=== PATIENT | female | born 1965 | race Caucasian/White ===

== ENCOUNTER 2017-01-15 06:33 | Emergency (ER) | payer OTHER ==
[2017-01-15 06:39] VITALS: BMI 27.8
--- NOTE | 2017-01-15 07:09 | PDOC ---
History of Present Illness - History of Present Illness Initial Comments: 01/15/17 07:46 CHIEF COMPLAINT: Seizure PCP: Dr. Obey Winn HISTORY OF PRESENT ILLNESS: The patient is a 51-year-old female, a resident of [facility], was brought in because she had " Seizure" this morning. A/c to the resident care manager rn Antwan ( at bed side), they were helping her take shower when suddenly she sat down on her butt and started shaking from head to toe, there was no up rolling of eyes or tongue bite, lasted for 4-5 minutes. This is her third episode of seizure. Patient was seen here in Nov, 2015 with first episode of seizure, was given loading dose of Keppra but EEG was normal, hence Keppra was stopped. She came back again after a month, Dr. King was consulted who mentioned she may have been developing early onset Alzheimers and seizure secondary to Downs syndrome. Hence Keppra was restarted. Health Policy Manager mentions that patient has been compliant with the medication and has not noticed any unusual activities in the past week. Last night fireman helper found her in her bed up all night which is usual for her. Has h/o constipation. On diapers, no blood noticed in the diaper. Appetite:Ground diet and thin liquids. Recent Travel: None PAST MEDICAL HISTORY: Down Syndrome, Hypothyroidism, Early onset dementia and Seizure. PAST SURGICAL HISTORY: As mentioned above Social History: Smoking: Denies Alcohol: Denies Drugs: Denies Family History:Unknown Allergies: NKDA 01/15/17 08:34 <Chuyita Paz - Last Filed: 01/15/17 12:34> <Jenniffer Goldman - Last Filed: 01/15/17 12:53> - General Chief Complaint: Seizure Stated Complaint: SEIZURES Time Seen by Provider: 01/15/17 07:09 Past History - Past Medical History Anemia: No Asthma: No Cancer: No Cardiac Disorders: No CVA: No COPD: No CHF: No Dementia: No Diabetes: No GI Disorders: Yes (umbilical hernia) Disorders: No HTN: No Hypercholesterolemia: No Liver Disease: No Seizures: Yes (Generalized non-convulsive epilepsy) Thyroid Disease: Yes - Surgical History Abdominal Surgery: No Appendectomy: No Cardiac Surgery: No Cholecystectomy: No Lung Surgery: No Neurologic Surgery: No Orthopedic Surgery: Yes (Hoyt Rods) - Immunization History Immunization Up to Date: Yes - Psycho/Social/Smoking Cessation Hx Anxiety: No Suicidal Ideation: No Smoking Status: No Smoking History: Never smoked Have you smoked in the past 12 months: No Number of Cigarettes Smoked Daily: 0 Hx Alcohol Use: No Drug/Substance Use Hx: No Substance Use Type: None Hx Substance Use Treatment: No <Chuyita Paz - Last Filed: 01/15/17 12:34> <Jenniffer Goldman - Last Filed: 01/15/17 12:53> - Past Medical History Allergies/Adverse Reactions: Allergies Allergy/AdvReac Type Severity Reaction Status Date / Time No Known Allergies Allergy Verified 01/15/17 06:40 Home Medications: Ambulatory Orders Acetaminophen [Tylenol] 650 mg PO Q4H PRN 01/13/16 Bisacodyl [Dulcolax] 10 mg RC HS PRN 01/13/16 Levothyroxine [Synthroid -] 137 mcg PO DAILY 01/13/16 Multivitamin [Poly-Vitamin] 1 each PO DAILY 01/13/16 Polyethylene Glycol 3350 [Miralax (For Bowel Prep) -] 17 gm PO DAILY 01/13/16 Sennosides [Senna] 2 tab PO HS 01/13/16 Levetiracetam [Keppra] 1,000 mg PO BID #30 tablet 01/15/17 Review of Systems - Review of Systems Able to Perform ROS?: Yes Comments:: 01/15/17 08:12 CONSTITUTIONAL: Absent: fever, chills, diaphoresis, generalized weakness, malaise, loss of appetite HEENT: Absent: rhinorrhea, nasal congestion, throat pain, throat swelling, difficulty swallowing, mouth swelling, ear pain, eye pain, visual Changes CARDIOVASCULAR: Absent: chest pain, syncope, palpitations, irregular heart rate, lightheadedness , peripheral edema RESPIRATORY: Absent: cough, shortness of breath, dyspnea with exertion, orthopnea, wheezing, stridor, hemoptysis GASTROINTESTINAL: Absent: abdominal pain, abdominal distension, nausea, vomiting, diarrhea, constipation, melena, hematochezia GENITOURINARY: Absent: dysuria, frequency, urgency, hesitancy, hematuria, flank pain, genital pain MUSCULOSKELETAL: Absent: myalgia, arthralgia, joint swelling SKIN: Absent: rash, itching, pallor HEMATOLOGIC/IMMUNOLOGIC: Absent: easy bleeding, easy bruising, lymphadenopathy, frequent infections ENDOCRINE: Absent: unexplained weight gain, unexplained weight loss, heat intolerance, cold intolerance NEUROLOGIC: Present: seizure Absent: headache, focal weakness or paresthesias, dizziness, unsteady gait, mental status changes, bladder or bowel incontinence PSYCHIATRIC: Absent: anxiety, depression, suicidal or homicidal ideation, hallucinations. Is the patient limited [place] proficient: No <Chuyita Paz - Last Filed: 01/15/17 12:34> *Physical Exam - Vital Signs Last Vital Signs Temp Pulse Resp BP Pulse Ox 83 18 116/65 98 01/15/17 06:37 01/15/17 06:37 01/15/17 06:37 01/15/17 06:37 - Physical Exam Comments: 01/15/17 08:13 PE: GENERAL: Sleepy but arousable, non verbal at baseline, in no acute distress HEAD: No signs of trauma EYES: PERRLA, EOMI, sclera anicteric, conjunctiva clear ENT: Redness over the auricles of right ear, nares patent, oropharynx clear without exudates. Moist mucosa NECK: Normal ROM, supple, no lymphadenopathy, JVD, or masses LUNGS: Breath sounds equal, clear to auscultation bilaterally. No wheezes, and no crackles.. HEART: Regular rate and rhythm, normal S1 and S2, soft systolic murmur. ABDOMEN: Soft, nontender, normoactive bowel sounds. No guarding, no rebound. No masses EXTREMITIES: Normal range of motion, no edema. No clubbing or cyanosis. No cords, erythema, or tenderness NEUROLOGICAL: Cranial nerves II through XII grossly intact. Non verbal, gait not observed. Back: Surgical scar nicole starting from the neck to the lower back. SKIN: Warm, Dry, normal turgor, no rashes or lesions noted. <Chuyita Paz - Last Filed: 01/15/17 12:34> - Vital Signs Last Vital Signs Temp Pulse Resp BP Pulse Ox 97.6 F 90 17 107/61 100 01/15/17 10:12 01/15/17 12:04 01/15/17 12:04 01/15/17 12:04 01/15/17 12:04 <Jenniffer Goldman - Last Filed: 01/15/17 12:53> ED Treatment Course - LABORATORY CBC & Chemistry Diagram: 01/15/17 07:50 01/15/17 07:50 <Chuyita Paz - Last Filed: 01/15/17 12:34> - LABORATORY CBC & Chemistry Diagram: 01/15/17 07:50 01/15/17 07:50 - ADDITIONAL ORDERS Additional order review: Laboratory Results 01/15/17 01/15/17 01/15/17 11:52 08:50 08:05 Sodium Potassium Chloride Carbon Dioxide Anion Gap BUN Creatinine Creat Clearance w eGFR Random Glucose Lactic Acid 0.881 2.300 H* Calcium Total Bilirubin AST ALT Alkaline Phosphatase Total Protein Albumin Urine Color Yellow Urine Appearance Cloudy Urine pH 7.0 Ur Specific [place] 1.016 Urine Protein Negative Urine Glucose (UA) Negative Urine Ketones Negative Urine Blood Negative Urine Nitrite Negative Urine Bilirubin Negative Urine Urobilinogen Negative Ur Leukocyte Esterase Negative 01/15/17 07:50 Sodium 142 Potassium 4.6 Chloride 104 Carbon Dioxide 32 Anion Gap 6 L BUN 18 D Creatinine 0.9 Creat Clearance w eGFR > 60 Random Glucose 94 Lactic Acid Calcium 8.3 L Total Bilirubin 0.6 AST 31 ALT 41 D Alkaline Phosphatase 115 Total Protein 7.2 Albumin 3.3 L Urine Color Urine Appearance Urine pH Ur Specific [place] Urine Protein Urine Glucose (UA) Urine Ketones Urine Blood Urine Nitrite Urine Bilirubin Urine Urobilinogen Ur Leukocyte Esterase 01/15/17 07:50 Influenza Types A,B Antigen (JACQUI) - Final Nasopharyngeal Swab - Final 01/15/17 07:50 RBC 4.12 MCV 95.2 MCHC 33.4 RDW 15.3 MPV 7.7 Neutrophils % 63.0 D Lymphocytes % 25.7 D Monocytes % 10.5 H D Eosinophils % 0.2 D Basophils % 0.6 - Medications Given in the ED: ED Medications Discontinued Medications Generic Name Dose Route Start Last Admin Trade Name Freq PRN Reason Stop Dose Admin Sodium Chloride 1,000 mls @ 1,000 mls/hr 01/15/17 09:53 01/15/17 10:05 Normal Saline - IV 01/15/17 10:52 1,000 mls/hr ASDIR STA Administration Levetiracetam 1,000 mg 01/15/17 09:12 01/15/17 10:12 Keppra Injection - IVPB 01/15/17 09:13 1,000 mg ONCE ONE Administration <Jenniffer Goldman - Last Filed: 01/15/17 12:53> Medical Decision Making - Medical Decision Making 01/15/17 07:05 Patient seen and examined, resident care manager rn Antwan at bed side. Vitals, temp-96 F, rest unremarkable. At baseline now as per the resident care manager rn. Physical examination: Normal Will order CBC, CMP, UA, CXR, Lactic acid Differential Diagnosis: Non compliance to seizure medication, subtherapeutic keppra levels, metabolic disturbances, infections, sleep deprivation. 01/15/2017 8:00 Patient reassessed. Health Policy Manager says she is at baseline, she is sleeping now but arousable. Labs noted, no leukocytosis, no metabolic disturbance. 01/15/17 9:00 Gentle hydration and IV Keppra 1000mg Stat. Will reassess the patient and place a call to Dr. King for his recommendations. 01/15/17 11:55am Call placed to Dr. King. Dr. King recommends to increase Keppra dose to 1000mg BID and send her home. 01/15/17 12:05 Clinical Impression: Seizure most likely due to inadequate dose of medication Lactic acidosis could be due to seizure-Patient received IV hydration and IV Keppra 1000mg stat Repeat Lactic acid stat and to send the patient home once lactic acid comes back normal. Increased 750mg of Keppra to 1000mg of Keppra BID Patient endorsed to Dr. Goldman @ 12:35pm Illness, Investigation and Plan of care explained to the patients resident care manager rn ( Antwan) and she verbalized understanding. Case seen and discussed with Dr. Goldman. <Chuyita Paz - Last Filed: 01/15/17 12:34> *DC/Admit/Observation/Transfer <Chuyita Paz - Last Filed: 01/15/17 12:34> - Discharge Dispostion Admit: No <Jenniffer Goldman - Last Filed: 01/15/17 12:53> Diagnosis at time of Disposition: Seizure, Seizure disorder - Discharge Dispostion Disposition: [facility] Condition at time of disposition: Stable - Prescriptions Prescriptions: Levetiracetam [Keppra] 1,000 mg PO BID #30 tablet - Patient Instructions Additional Instructions: Increase the Keppra dose to 1000mg twice daily. Follow-up with Neurology. Return to the ED if symptoms persist, worsen or new symtpoms arise.
--- NOTE | 2017-01-15 07:58 | PDOC ---
Attending Attestation - Resident Resident Name: Chuyita Paz - ED Attending Attestation I have performed the following: I have examined & evaluated the patient, The case was reviewed & discussed with the resident, I agree w/resident's findings & plan, Exceptions are as noted - HPI HPI: 01/15/17 09:52 Agree with the resident's HPI as documented in the electronic medical record. - Physicial Exam PE: 01/15/17 09:52 Agree with the resident's physical examination as documented in the electronic medical record. - Medical Decision Making 01/15/17 07:57 51-year-old female with history of Down syndrome, mental retardationthe patient is nonverbal at baseline early dementia, seizure disorder (on Keppra) who presents to the emergency department following a witnessed generalized tonic -clonic seizure; the patient has a temperature of 96F rectally. There appears to be no traumatic injury. Differential diagnosis includes but is not limited to : Subtherapeutic antiepileptic drug levels, infection (urinary tract infection versus pneumonia close rent disease, influenza, electrolyte abnormality, toxic/ metabolic derangement, dehydration. Plan: 1. Labs 2. Urine analysis 3. Chest x-ray 4. Influenza PCR 5. Warm blankets 6. Observe and reevaluate 01/15/17 12:51 Addendum: The labs were reviewed and are noted in the EMR. The lactate was initially 2.3 but is now 0.8. We have spoken to Dr. Christiano perez who is the patient's neurologist who recommended a load with Keppra of 1 g in the emergency department and discharged on 1 g twice a day.
[2017-01-15 08:18] LABS: BASOPHIL 0.6 % (0-2.0); EOSINOPHIL 0.2 % (0-4.5); MCH 31.8 pg (25.7-33.7); MCHC 33.4 g/dl (32.0-36.0); MEAN CELL VOLUME 95.2 fl (80-96); MEAN PLT VOLUME 7.7 fl (7.5-11.1); PLATELET COUNT 239 K/MM3 (134-434); RDW 15.3 % (11.6-15.6); WHITE BLOOD COUNT 4.9 K/mm3 (4.0-10.0)
[2017-01-15 08:51] LABS: ALBUMIN 3.3 g/dl (3.4-5.0); ANION GAP 6 (8-16); BILIRUBIN,TOTAL 0.6 mg/dL (0.2-1.0); CALCIUM 8.3 mg/dL (8.5-10.1); CO2 32 mmol/L (21-32); CREATININE 0.9 mg/dL (0.55-1.02); GLUCOSE,RANDOM 94 mg/dL (74-106); SGOT/AST 31 U/L (15-37); SGPT/ALT 41 U/L (12-78); TOT PROT 7.2 g/dl (6.4-8.2)
[2017-01-15 08:52] LABS: ALK PHOS 115 U/L (45-117)
[2017-01-15 08:54] LABS: URINE APPEARANCE CLOUDY; URINE BILIRUBIN NEGATIVE (NEGATIVE); URINE BLOOD NEGATIVE (NEGATIVE); URINE COLOR YELLOW; URINE GLUCOSE (UA) NEGATIVE (NEGATIVE); URINE KETONE NEGATIVE (NEGATIVE); URINE LEUK ESTERASE NEGATIVE (NEGATIVE); URINE NITRITE NEGATIVE (NEGATIVE); URINE PROTEIN NEGATIVE (NEGATIVE); URINE UROBILINOGEN NEGATIVE E.U./dl (0.2-1.0)
[2017-01-15] MEDS ORDERED: levETIRAcetam 500 MG/5 ML INJECTION VIAL IVPB ONE ×2 (09:12→10:06)
[2017-01-15] MEDS ORDERED: SODIUM CHLORIDE 1,000 ML IV SCH (09:15)
[2017-01-15] MEDS ORDERED: SODIUM CHLORIDE 1,000 ML IV STA (09:53)
[2017-01-15 13:23] VITALS: BP 115/71; PULSE 75; TEMP 97.9
--- NOTE | 2017-01-15 14:34 | EKG ---
Test Reason : Blood Pressure : / mmHG Vent. Rate : 089 BPM Atrial Rate : 089 BPM P-R Int : 160 ms QRS Dur : 070 ms QT Int : 376 ms P-R-T Axes : 074 050 037 degrees QTc Int : 457 ms NORMAL SINUS RHYTHM POSSIBLE LEFT ATRIAL ENLARGEMENT BORDERLINE ECG WHEN COMPARED WITH ECG OF 14-MAR-2012 10:56, NO SIGNIFICANT CHANGE WAS FOUND Confirmed by LUZ CORTES MD ([id number]) on 01/15/2017 2:34:08 PM Referred By: Confirmed By:LUZ CORTES MD
== END 2017-01-15 13:23 ==
LOC: JER 06:33
PROC: 3E0337Z Introduction of Electrolytic and Water Balance Substance into Peripheral Vein, Percutaneous Approach (ICD-10-PCS; principal; 2017-01-15)
PROC: 3E033GC Introduction of Other Therapeutic Substance into Peripheral Vein, Percutaneous Approach (ICD-10-PCS; 2017-01-15)
DX: G40.909 Epilepsy, unspecified, not intractable, without status epilepticus (principal); E03.9 Hypothyroidism, unspecified; F03.90 Unspecified dementia, unspecified severity, without behavioral disturbance, psychotic disturbance, mood disturbance, and anxiety; Q90.9 Down syndrome, unspecified
CPT/HCPCS: 36415; 71010-TC; 80053; 81003; 83605; 85025; 87040; 87086; 87804; 93005; 93010; 96361; 96374; 99285-25

== ENCOUNTER 2018-02-01 19:18 | Emergency (ER) | payer OTHER ==
[2018-02-01 19:47] VITALS: BP 120/53; PULSE 79; TEMP 98; BMI 21.0
--- NOTE | 2018-02-01 20:06 | PDOC ---
History of Present Illness - General Chief Complaint: Nausea/Vomiting Stated Complaint: VOMITING Time Seen by Provider: 02/01/18 20:06 - History of Present Illness Initial Comments: 52 year old female with PMH of down syndrome and hypothyroidism presenting with nausea and vomiting NBNB x6 episodes since this AM. The patient was not complaining of any abdominal pain or other symptoms. She is typically non verbal but occasionally can point towards areas of pain. The environmental conservation professor at bedside states that she has not had fevers, chills, diarrhea, SOB, wheezing, or other symptoms. 02/01/18 23:22 Past History - Past Medical History Allergies/Adverse Reactions: Allergies Allergy/AdvReac Type Severity Reaction Status Date / Time No Known Allergies Allergy Verified 01/15/17 06:40 Home Medications: Ambulatory Orders Acetaminophen [Tylenol] 650 mg PO Q4H PRN 01/13/16 Bisacodyl [Dulcolax] 10 mg RC HS PRN 01/13/16 Levothyroxine [Synthroid -] 137 mcg PO DAILY 01/13/16 Multivitamin [Poly-Vitamin] 1 each PO DAILY 01/13/16 Polyethylene Glycol 3350 [Miralax (For Bowel Prep) -] 17 gm PO DAILY 01/13/16 Sennosides [Senna] 2 tab PO HS 01/13/16 Levetiracetam [Keppra] 1,000 mg PO BID #30 tablet 01/15/17 Anemia: No Asthma: No Cancer: No Cardiac Disorders: No CVA: No COPD: No CHF: No Dementia: No Diabetes: No GI Disorders: Yes (umbilical hernia) Disorders: No HTN: No Hypercholesterolemia: No Liver Disease: No Seizures: Yes (Generalized non-convulsive epilepsy) Thyroid Disease: Yes - Surgical History Abdominal Surgery: No Appendectomy: No Cardiac Surgery: No Cholecystectomy: No Lung Surgery: No Neurologic Surgery: No Orthopedic Surgery: Yes (Hoyt Rods) - Immunization History Immunization Up to Date: Yes - Suicide/Smoking/Psychosocial Hx Smoking Status: No Smoking History: Never smoked Have you smoked in the past 12 months: No Number of Cigarettes Smoked Daily: 0 Hx Alcohol Use: No Drug/Substance Use Hx: No Substance Use Type: None Hx Substance Use Treatment: No Review of Systems - Review of Systems Able to Perform ROS?: No (unable to express herself) *Physical Exam - Vital Signs Last Vital Signs Temp Pulse Resp BP Pulse Ox 98 F 79 18 120/53 100 02/01/18 19:40 02/01/18 19:40 02/01/18 19:40 02/01/18 19:40 02/01/18 19:40 - Physical Exam General Appearance: Yes: Nourished, Appropriately Dressed. No: Apparent Distress HEENT: positive: EOMI, CARINE, Normal ENT Inspection, Other (facial featurs and ear level to epicanthal fold level consistent with trisomy 13) Neck: positive: Trachea midline, Supple. negative: Tender, Rigid Respiratory/Chest: positive: Lungs Clear, Normal Breath Sounds. negative: Chest Tender, Respiratory Distress, Accessory Muscle Use Cardiovascular: positive: Regular Rhythm, Regular Rate Gastrointestinal/Abdominal: positive: Normal Bowel Sounds, Flat, Soft, Hernia ( large ventral hernia, easily reducible. ). negative: Tender, Pulsatile Mass Musculoskeletal: positive: Normal Inspection Extremity: positive: Normal Capillary Refill, Normal Inspection Integumentary: positive: Normal Color, Dry, Warm Neurologic: positive: Alert, Motor Strength 5/5. negative: Normal Response ( continuously trying to ) ED Treatment Course - LABORATORY CBC & Chemistry Diagram: 02/01/18 21:30 02/01/18 21:30 Medical Decision Making - Medical Decision Making Patient did not have any episodes of nausea/ vomiting while in our ED. Her abdominal exam was benign x 3 (no tenderness, guarding, and ventral mass continuously reducible) and she tolerated PO apple sauce and juice without issue. Stable for discharge home as this is likely a short lived viral gastritis. 02/01/18 23:37 *DC/Admit/Observation/Transfer Diagnosis at time of Disposition: Gastritis Qualifiers: Gastritis type: unspecified gastritis Chronicity: acute Gastritis bleeding: without bleeding Qualified Code(s): K29.00 - Acute gastritis without bleeding - Discharge Dispostion Disposition: HOME Condition at time of disposition: Improved Admit: No - Referrals Referrals: Pa Barnhart Jr [Primary Care Provider] - - Patient Instructions Printed Discharge Instructions: DI for Vomiting -- Adult, DI for Abdominal Pain -Adult Additional Instructions: She did not vomit while in our ED. We recommend to continue following her diet instructions. She likely had a short viral infection of her stomach. Please have her return to the ED if she has any new or worsening symptoms. - Post Discharge Activity
[2018-02-01] MEDS ORDERED: SODIUM CHLORIDE 1,000 ML IV STA (20:46)
[2018-02-01 21:41] LABS: BASO % 0.9 % (0-2.0); EOS % 0.3 % (0-4.5); HEMATOCRIT 39.5 % (32.4-45.2); HEMOGLOBIN 13.4 GM/dL (10.7-15.3); LYMPH % 25.5 % (8-40); MCH 33.4 pg (25.7-33.7); MEAN CELL VOLUME 98.3 fl (80-96); MEAN PLT VOLUME 7.2 fl (7.5-11.1); MONO % 12.5 % (3.8-10.2); NEUT % 60.8 % (42.8-82.8); PLATELET COUNT 320 K/MM3 (134-434); RBC 4.02 M/mm3 (3.60-5.2); RDW 14.6 % (11.6-15.6); WHITE BLOOD COUNT 5.7 K/mm3 (4.0-10.0)
--- NOTE | 2018-02-01 22:21 | PDOC ---
Attending Attestation - Resident Resident Name: Lacey Dominguez - ED Attending Attestation I have performed the following: I have examined & evaluated the patient, The case was reviewed & discussed with the resident, I agree w/resident's findings & plan, Exceptions are as noted - Physicial Exam PE: 02/01/18 22:17 Awake and alert, well-nourished, in no distress Microcephalic, + Facial Dysmorphic features are noted mmm cta rrr sft, nd, nt, + large easily reducible ventral hernia is noted No lower extremity edema - Medical Decision Making 02/01/18 22:18 Patient is a 52-year-old female with history of Down syndrome, hypothyroidism, mental retardation presents to the ER with nausea and numerous episodes of nonbloody, nonbilious vomiting. In the ER, patient is afebrile, hemodynamically stable, with a large reducible ventral hernia but no evidence of acute abdomen. will obtain cbc, cmp, ua. will hydrate. will reascess. 02/01/18 23:45 pt ariel po. repeat abd exam- no ttp, no distention. bs-in all 4 quadr. will d/ c. <Mode Lira - Last Filed: 02/01/18 23:45> - HPI HPI: 02/02/18 00:32 The patient is a 52 year old female with a significant PMH of down syndrome, hypothyroidism, and mental retardation who presents to the emergency department with nausea and six episodes of nonbloody, nonbilious vomiting this morning. 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 Allergies: NKA Past surgical history: None reported. PCP: Dr. Barnhart <Suzanne Perdomo - Last Filed: 02/02/18 00:32>
[2018-02-01 22:48] LABS: ALBUMIN 3.2 g/dl (3.4-5.0); ANION GAP 12 (8-16); BLOOD UREA NITROGEN 20 mg/dL (7-18); CALCIUM 8.7 mg/dL (8.5-10.1); CHLORIDE 100 mmol/L (98-107); CO2 29 mmol/L (21-32); GLUCOSE,RANDOM 96 mg/dL (74-106); POTASSIUM 4.5 mmol/L (3.5-5.1); SGOT/AST 42 U/L (15-37); SGPT/ALT 40 U/L (12-78); SODIUM 141 mmol/L (136-145)
[2018-02-01 22:51] LABS: ALK PHOS 122 U/L (45-117); BILIRUBIN,TOTAL 0.4 mg/dL (0.2-1.0); TOT PROT 7.4 g/dl (6.4-8.2)
== END 2018-02-02 00:15 | disposition home or self-care (01) ==
LOC: JER 19:18
PROC: 3E0337Z Introduction of Electrolytic and Water Balance Substance into Peripheral Vein, Percutaneous Approach (ICD-10-PCS; principal; 2018-02-01)
DX: K29.00 Acute gastritis without bleeding (principal); E03.9 Hypothyroidism, unspecified; G40.909 Epilepsy, unspecified, not intractable, without status epilepticus; Q90.9 Down syndrome, unspecified
CPT/HCPCS: 36415; 80053; 82550; 82553; 84484; 85025; 96360; 99282-25; J7030

== ENCOUNTER 2018-08-05 14:22 | Observation (INO) | payer OTHER ==
--- NOTE | 2018-08-05 15:18 | PDOC ---
History of Present Illness - General Chief Complaint: Seizure Stated Complaint: SEIZURE Time Seen by Provider: 08/05/18 14:36 - History of Present Illness Initial Comments: 52 year old female with PMH down syndrome, MR, Epilepsy, nonverbal, lymphocytic thyroiditis BIBEMS from [facility] with medical center director after the patient had two witnessed seizures at 11:30 AM and 1:40 PM that were noticed to be generalized according to the health aid. Typically, she has small twitching motions for her seizures but this time the aid noted generalized movements of her upper and lower extremities. They lasted approximately 45 seconds and 1 minute respectively after which she returned to her baseline. She recently had cervical spine surgery that was uneventful and the surgical site has been well healing since then. They deny any fevers, chills, cough, medical non-compliance , or any other sign of illness. 08/05/18 15:18 Past History - Past Medical History Allergies/Adverse Reactions: Allergies Allergy/AdvReac Type Severity Reaction Status Date / Time No Known Allergies Allergy Verified 07/27/18 11:40 Home Medications: Ambulatory Orders Acetaminophen [Tylenol] 650 mg PO TID PRN 07/27/18 Levetiracetam 1,000 mg PO BID 07/27/18 Levothyroxine [Synthroid -] 150 mcg PO DAILY 07/27/18 Mineral Oil [Mineral Oil Heavy] 4 drop HS 07/27/18 Pedi Multivit 158/Iron/Vit K1 [Cerovite Jr Tablet Chew] 1 each PO DAILY Polyethylene Glycol 3350 [Miralax (For Bowel Prep) -] 17 gm PO DAILY 07/27/18 Sennosides/Docusate Sodium [Senna-S Tablet] 2 each PO DAILY 07/27/18 Anemia: No Asthma: No Cancer: No Cardiac Disorders: No CVA: No COPD: No CHF: No DVT: No Dementia: No Diabetes: No Dialysis: No GI Disorders: Yes (umbilical hernia) Disorders: No HTN: No Hypercholesterolemia: No Kidney Stones: No Liver Disease: No Psychiatric Problems: No Seizures: Yes (Generalized non-convulsive epilepsy) Thyroid Disease: Yes Lung CA: No - Surgical History Abdominal Surgery: No Appendectomy: No Cardiac Surgery: No Cholecystectomy: No Gastric Stapling: No GI Surgery: No Lung Surgery: No Neurologic Surgery: No Orthopedic Surgery: Yes (Hoyt Rods) - Immunization History Immunization Up to Date: Yes - Suicide/Smoking/Psychosocial Hx Smoking Status: No Smoking History: Never smoked Have you smoked in the past 12 months: No Number of Cigarettes Smoked Daily: 0 Information on smoking cessation initiated: No Hx Alcohol Use: No Drug/Substance Use Hx: No Substance Use Type: None Hx Substance Use Treatment: No Review of Systems - Review of Systems Able to Perform ROS?: Yes (Partially- nonverbal) Constitutional: No: Chills, Diaphoresis, Fever, Loss of Appetite HEENTM: No: Blurred Vision, Tearing, Recent change in vision, Double Vision Respiratory: No: Cough, Shortness of Breath Cardiac (ROS): No: Chest Pain, Edema ABD/GI: No: Constipated, Diarrhea, Nausea, Vomiting : No: Dysuria, Discharge Integumentary: No: Erythema, Flushing, Lesions Neurological: Yes: Seizure, Tremors. No: Weakness, Unsteady Gait, Ataxia, Dizziness *Physical Exam - Vital Signs Last Vital Signs Temp Pulse Resp BP Pulse Ox 97.9 F 90 20 98/59 98 08/05/18 14:27 08/05/18 14:27 08/05/18 14:27 08/05/18 14:27 08/05/18 14:27 - Physical Exam General Appearance: Yes: Nourished, Appropriately Dressed. No: Apparent Distress HEENT: positive: EOMI, CARINE. negative: Normal ENT Inspection (Consistent with Down syndrome) Neck: positive: Trachea midline, Normal Thyroid, Rigid (Recent cervical spine surgery with well healing surgical site and no site of infection.). negative: Tender Respiratory/Chest: positive: Lungs Clear, Normal Breath Sounds. negative: Chest Tender, Respiratory Distress, Accessory Muscle Use Cardiovascular: positive: Regular Rhythm, Regular Rate Gastrointestinal/Abdominal: positive: Normal Bowel Sounds, Flat, Soft. negative : Tender Lymphatic: negative: Adenopathy, Tenderness Musculoskeletal: negative: Normal Inspection (Spinal stiffness post op) Extremity: positive: Normal Capillary Refill, Normal Inspection, Normal Range of Motion, Tender Integumentary: positive: Normal Color, Dry, Warm Neurologic: positive: Alert, Motor Strength 5/5, Other (Non verbal and MR) ED Treatment Course - LABORATORY CBC & Chemistry Diagram: 08/05/18 15:41 08/05/18 15:41 Medical Decision Making - Medical Decision Making 52 year old female with history of DS and epilepsy presenting after two seizures. All labs WNl. UA and keppra level pending when patient seized. She was Keppra loaded and ativan was deferred as she stopped seizing. 08/05/18 18:[address] Camargo and he kindly took the consult after which recommending a total of 1500 Keppra. Patient admitted to hosptialist service under [facility] after signing out to team. 08/05/18 19:00 *DC/Admit/Observation/Transfer Diagnosis at time of Disposition: Epilepsy Qualifiers: Epilepsy type: unspecified Intractability: not intractable Status epilepticus: without status epilepticus Qualified Code(s): G40.909 - Epilepsy, unspecified, not intractable, without status epilepticus - Discharge Dispostion Disposition: HOME Condition at time of disposition: Stable Decision to Admit order: Yes - Referrals Referrals: Orlando Barnhart MD [Primary Care Provider] - - Patient Instructions - Post Discharge Activity
--- NOTE | 2018-08-05 15:56 | PDOC ---
Attending Attestation - Resident Resident Name: Lacey Dominguez - ED Attending Attestation I have performed the following: I have examined & evaluated the patient, The case was reviewed & discussed with the resident, I agree w/resident's findings & plan - HPI HPI: 08/05/18 15:51 [facility] with history of Down syndrome/developmental delay and seizures who presents with 2 witnessed seizures earlier today. Generalized tonic-clonic seizure 2, each lasting less than 1 minute, one occurring around 11 AM and then again at 1:30 PM. Aide reports compliance with medications, no recent dosing changes, patient is back to baseline at this time. On review of systems, aide does not endorse any evidence of an acute infection. - Physicial Exam PE: 08/05/18 15:53 Vital signs normal, afebrile alert and seated in stretcher, c-collar on interacting at baseline, nonverbal no trauma, moving all extremities equally - Medical Decision Making 08/05/18 15:55 52-year-old female with developmental delay and history of seizures presents with seizure 2 earlier today, now back to baseline and neurologically intact without red flags suggestive of infection on history or physical exam. Labs, urinalysis Check the level Observe and disposition accordingly
[2018-08-05 16:07] LABS: BASO % 1.1 % (0-2.0); EOS % 0.7 % (0-4.5); HEMATOCRIT 40.8 % (32.4-45.2); HEMOGLOBIN 13.5 GM/dL (10.7-15.3); LYMPH % 25.3 % (8-40); MCH 32.5 pg (25.7-33.7); MCHC 33.1 g/dl (32.0-36.0); MEAN CELL VOLUME 98.1 fl (80-96); MEAN PLT VOLUME 7.5 fl (7.5-11.1); MONO % 7.2 % (3.8-10.2); NEUT % 65.7 % (42.8-82.8); PLATELET COUNT 366 K/MM3 (134-434); RBC 4.16 M/mm3 (3.60-5.2); RDW 17.6 % (11.6-15.6); WHITE BLOOD COUNT 4.3 K/mm3 (4.0-10.0)
[2018-08-05 16:25] LABS: ALBUMIN 1.6 g/dl (3.4-5.0); ANION GAP 24 MMOL/L (8-16); BILIRUBIN,TOTAL 0.4 mg/dL (0.2-1); BLOOD UREA NITROGEN 14 mg/dL (7-18); CHLORIDE 99 mmol/L (98-107); CO2 17 mmol/L (21-32); CREATININE 0.8 mg/dL (0.55-1.3); MAGNESIUM 2.3 mg/dL (1.8-2.4); PHOSPHOROUS 3.5 mg/dL (2.5-4.9); POTASSIUM 4.5 mmol/L (3.5-5.1); SGOT/AST 28 U/L (15-37); SGPT/ALT 43 U/L (13-61); SODIUM 140 mmol/L (136-145)
[2018-08-05 16:26] LABS: ALK PHOS 148 U/L (45-117); TOT PROT 7.9 g/dl (6.4-8.2)
[2018-08-05] MEDS ORDERED: LORazepam 2 MG/ML SDV VIAL ONE (18:25)
[2018-08-05 18:27] LABS: GLUCOSE,RANDOM 103 mg/dL (74-106)
[2018-08-05] MEDS ORDERED: levETIRAcetam 500 MG/5 ML INJECTION VIAL IVPB ONE ×4 (18:33→19:02)
[2018-08-05] MEDS ORDERED: SODIUM CHLORIDE 0.9% 500 ML INFUS.BAG IV ONE (18:48)
[2018-08-05 18:54] LABS: URINE APPEARANCE CLOUDY; URINE BILIRUBIN NEGATIVE (<2.0 mg/dL); URINE COLOR YELLOW; URINE GLUCOSE (UA) NEGATIVE (NEGATIVE); URINE KETONE NEGATIVE (NEGATIVE); URINE LEUK ESTERASE NEGATIVE (NEGATIVE); URINE NITRITE POSITIVE (NEGATIVE); URINE PROTEIN NEGATIVE (NEGATIVE); URINE UROBILINOGEN NEGATIVE mg/dL (0.2-1.0)
[2018-08-05 19:08] LABS: URINE BACTERIA RARE /hpf (NONE SEEN); URINE MUCUS RARE; YEAST FEW
--- NOTE | 2018-08-05 19:22 | PN ---
Teaching Attending Note Name of Resident: Og Littlejohn ATTENDING PHYSICIAN STATEMENT I saw and evaluated the patient. I reviewed the resident's note and discussed the case with the resident. I agree with the resident's findings and plan as documented. SUBJECTIVE: Patient is a 52 year old woman with PMH Down's syndrome, MR, Epilepsy, nonverbal , lymphocytic thyroiditis BIBEMS from [facility] with biomedical manager after the patient had two witnessed seizures at 11:30 AM and 1:40 PM that were noticed to be generalized according to the health aid. Typically, she has small twitching motions for her seizures but this time the aid noted generalized movements of her upper and lower extremities. They lasted approximately 45 seconds and 1 minute respectively after which she returned to her baseline. She recently had cervical spine surgery that was uneventful and the surgical site has been well healing since then. They deny any fevers, chills , cough, medical non-compliance, or any other sign of illness. OBJECTIVE: Alert and nonverbal Vital Signs Period Temp Pulse Resp BP Sys/Miranda Pulse Ox Last 24 Hr 97.9 F 82-90 17-20 97-98/43-59 98-99 HEENT: No Jaundice, eye redness or discharge, PERRLA, Normocephalic, atraumatic. External ears are normal; No nasal discharge. Neck: Supple, nontender. Healed spine scar. No palpable adenopathy or thyromegaly. No JVD Chest: Good effort. Clear to auscultation and percussion. Heart: Regular. No S3, rub or murmur Abdomen: Not distended, soft, nontender and no HSM. No rebound or guarding. Normoactive bowel sounds. Ext: Peripheral pulses intact. No leg edema. Skin: Warm and dry. No petechiae, rash or ecchymosis. Neuro: Alert. Nonverbal. Moves all limbs. Home Medications Medication Instructions Recorded Acetaminophen [Tylenol] 650 mg PO TID PRN 07/27/18 Levetiracetam 1,000 mg PO BID 07/27/18 Levothyroxine [Synthroid -] 150 mcg PO DAILY 07/27/18 Mineral Oil [Mineral Oil Heavy] 4 drop HS 07/27/18 Pedi Multivit 158/Iron/Vit K1 1 each PO DAILY 07/27/18 [Cerovite Jr Tablet Chew] Polyethylene Glycol 3350 [Miralax 17 gm PO DAILY 07/27/18 (For Bowel Prep) -] Sennosides/Docusate Sodium 2 each PO DAILY 07/27/18 [Senna-S Tablet] Abnormal Lab Results 08/05/18 08/05/18 08/05/18 15:41 15:41 15:41 MCV 98.1 H RDW 17.6 H Carbon Dioxide 17 L Anion Gap 24 H Alkaline Phosphatase 148 H Albumin 1.6 L TSH 0.07 L ASSESSMENT AND PLAN: 1. Seizure disorder - Cause of breakthrough seizure is unclear. Got extra dose of Keppra and keppra level pending. Neurolgy consult to consider adding a second anticonvulsant drug. Check free T4. Keep NPO for the next 24 hours. 2. Severe Hypoalbuminemia - Possibly due to combined effects of malnutrition and inflammation associated with comorbid chronic conditions. Will ensure adequate dietary protein intake and also consult airfreight operations agent. 3. DVT prophylaxis - Lovenox 40 mg SQ q 24 hours. 4. Advance directives - Full code
--- NOTE | 2018-08-05 21:46 | HP ---
CHIEF COMPLAINT: Seizure PCP: Dr. Ward HISTORY OF PRESENT ILLNESS: The patient is a 52 yo f w/ PMH down syndrome, MR, Epilepsy who comes into the ED from [facility] after having 2 witnessed seizures. The patient is nonverbal at baseline and the following history was collected from the patient's aide at bedside. The aide has noticed an increased frequency in the patent's seizures as wel as a change in their intensity. She states that prior to a recent cspine fixation due to fracture, the patient wound have minor jerks and grunts which resolved spontaneously in a few seconds with no postictal symptoms. Since this surgery, the patient has had an increase in seizure activities. Last saturday, the patient had a witness seizure which became generalized. This is atypical for the patient per the aide. The patient had two more of these generalized seizures today, one at 11:30 am and another at 1:40 PM. Both of these seizures lasted approx. 1 minute, resolved spontaneously and was followed by a period of post ictal behavior. Workup in the ED was signisifact for an elevated anoin gap to 24 as well as a low bicarb at 17. UA was negative. The patient had another witnessed generalized seizure in the ED here and was admitted for further workup. Dr. Camargo (neurology) was consulted from the ED and suggested 1500mg Keppra loading dose and admission. Recent Travel: none PAST MEDICAL HISTORY: Lymphocytic thyroiditis see HPI PAST SURGICAL HISTORY: Abdominal Hernia repair CSpine fixation 5 weeks ago Social History: Smoking: none Alcohol: none Drugs: none Family History: non-contributory Allergies No Known Allergies Allergy (Verified 07/27/18 11:40) HOME MEDICATIONS: Home Medications Medication Instructions Recorded Acetaminophen [Tylenol] 650 mg PO TID PRN 07/27/18 Levetiracetam 1,000 mg PO BID 07/27/18 Levothyroxine [Synthroid -] 150 mcg PO DAILY 07/27/18 Mineral Oil [Mineral Oil Heavy] 4 drop HS 07/27/18 Pedi Multivit 158/Iron/Vit K1 1 each PO DAILY 07/27/18 [Cerovite Jr Tablet Chew] Polyethylene Glycol 3350 [Miralax 17 gm PO DAILY 07/27/18 (For Bowel Prep) -] Sennosides/Docusate Sodium 2 each PO DAILY 07/27/18 [Senna-S Tablet] REVIEW OF SYSTEMS unable to obtain as patient is nonverbal. PHYSICAL EXAMINATION Vital Signs - 24 hr 08/05/18 08/05/18 08/05/18 14:27 18:58 19:15 Temperature 97.9 F 99.1 F Pulse Rate 90 Pulse Rate [ 82 82 Right] Respiratory 20 17 16 Rate Blood Pressure 98/59 Blood Pressure 97/43 112/87 [Right Arm] O2 Sat by Pulse 98 99 96 Oximetry (%) GENERAL: Awake, alert, and fully oriented, in no acute distress. Patient lying in bed clutching her head, seemingly bothered by the lights and sounds in the ED. HEAD: Normal with no signs of trauma. EYES: Pupils equal, round and reactive to light, extraocular movements intact, sclera anicteric, conjunctiva clear. No lid lag. EARS, NOSE, THROAT: oropharynx clear without exudates. Moist mucous membranes. NECK: Normal range of motion, supple without lymphadenopathy, JVD, or masses. Surgical scar over midline posterior neck clean, dry, intact with well approximated edges and no swelling, fluctuance or drainage. LUNGS: Breath sounds equal, clear to auscultation bilaterally. No wheezes, and no crackles. No accessory muscle use. HEART: Regular rate and rhythm, normal S1 and S2 without murmur, rub or gallop. ABDOMEN: Soft, nontender, not distended, normoactive bowel sounds, no guarding, no rebound, no masses. Umbilical abdominal muscle defect palpated without active herniation. LOWER EXTREMITIES: 2+ pulses, warm, well-perfused. No calf tenderness. No peripheral edema. NEUROLOGICAL: Cranial nerves II-XII intact. Strength 5/5 in all 4 extremities. Reflexes 2+ throughout, unable to assess sensation due to patient being nonverbal. PSYCHIATRIC: Cooperative. Good eye contact. Appropriate mood and affect. SKIN: Warm, dry, normal turgor, no rashes or lesions noted, normal capillary refill. Laboratory Results - last 24 hr 08/05/18 08/05/18 08/05/18 15:41 15:41 15:41 WBC 4.3 RBC 4.16 Hgb 13.5 Hct 40.8 MCV 98.1 H MCH 32.5 MCHC 33.1 RDW 17.6 H Plt Count 366 MPV 7.5 Absolute Neuts (auto) 2.8 Neutrophils % 65.7 Lymphocytes % 25.3 Monocytes % 7.2 Eosinophils % 0.7 Basophils % 1.1 Nucleated RBC % 0 Sodium 140 Potassium 4.5 Chloride 99 Carbon Dioxide 17 L Anion Gap 24 H BUN 14 Creatinine 0.8 Creat Clearance w eGFR > 60 Random Glucose 103 Calcium 10.0 Phosphorus 3.5 Magnesium 2.3 Total Bilirubin 0.4 AST 28 ALT 43 Alkaline Phosphatase 148 H Total Protein 7.9 Albumin 1.6 L TSH 0.07 L Urine Color Urine Appearance Urine pH Ur Specific Galt Urine Protein Urine Glucose (UA) Urine Ketones Urine Blood Urine Nitrite Urine Bilirubin Urine Urobilinogen Ur Leukocyte Esterase Urine WBC (Auto) Urine RBC (Auto) Urine Bacteria Urine Mucus Urine Yeast 08/05/18 18:40 WBC RBC Hgb Hct MCV MCH MCHC RDW Plt Count MPV Absolute Neuts (auto) Neutrophils % Lymphocytes % Monocytes % Eosinophils % Basophils % Nucleated RBC % Sodium Potassium Chloride Carbon Dioxide Anion Gap BUN Creatinine Creat Clearance w eGFR Random Glucose Calcium Phosphorus Magnesium Total Bilirubin AST ALT Alkaline Phosphatase Total Protein Albumin TSH Urine Color Yellow Urine Appearance Cloudy Urine pH 6.0 Ur Specific Galt 1.017 Urine Protein Negative Urine Glucose (UA) Negative Urine Ketones Negative Urine Blood Negative Urine Nitrite Positive Urine Bilirubin Negative Urine Urobilinogen Negative Ur Leukocyte Esterase Negative Urine WBC (Auto) 5 Urine RBC (Auto) 2 Urine Bacteria Rare Urine Mucus Rare Urine Yeast Few ASSESSMENT/PLAN: The patient is a 52 yo f w/ PMH down syndrome and epilepsy who comes into the ED from [facility] [place] for increasing seizure activity. #Increaseing seizure activity; eitology unclear -f/u Keppra level drawn in ED -s/p 1500mg Keppra load IV -will restart home keppra regimen for now, patient may benefit from addition of second agent -neurology consult placed from ED -seizure precautions, aspiration precautions until the patient has stopped seizing -NPO overnight; can likely feed the patient in the AM #High anion gap metabolic acidosis -AG 24 -HCO3 17 -Lactic acidosis from recent seizure may have contributed to this, but cannot be solely responsible for AG - #Hypoalbuminemia likely 2/2 malnourishment -patient on pureed diet at [place] -Crusher Assembler consult -suggest high protein supplement once patient eating again. #Low TSH -.07 -will order free T4 in the AM -hyperthyroidism may have contributed to seizure activity. #FEN -fluids not indicated -lytes WNL -NPO while in danger of seizing. Can feed in AM #Prophy -Lovenox 40mg SQ daily #Dispo -admit tele obs -medications to be reconciled w/ patient's pharmacy Visit type - Emergency Visit Emergency Visit: Yes ED Registration Date: 08/05/18 Care time: The patient presented to the Emergency Department on the above date and was hospitalized for further evaluation of their emergent condition. - New Patient This patient is new to me today: Yes Date on this admission: 08/05/18 - Critical Care Critical Care patient: No Hospitalist Screening - Colonoscopy Questionnaire Colonoscopy Questionnaire: Colonoscopy Questionnaire - Patient: 50 - 75 years old and never had a screening colonoscopy: Unknown History of colon or rectal polyps, or CA: Unknown History of IBD, Crohn's disease or UC: Unknown History of abdominal radiation therapy as a child: Unknown - Relative: 1 with colon or rectal CA, or polyps at age 60 or younger: Unknown Colon or rectal CA diagnosed at age 45 or younger: Unknown Multiple relatives with colon or rectal CA: Unknown - Outcome: Screening Result: Negative Screen
[2018-08-05] MEDS ORDERED: LORazepam 2 MG/ML SDV VIAL IVPUSH PRN (22:22)
[2018-08-06] MEDS ORDERED: LEVOTHYROXINE NA 150 MCG TABLET PO SCH (07:00)
[2018-08-06 07:27] LABS: HEMATOCRIT 39.2 % (32.4-45.2); HEMOGLOBIN 12.6 GM/dL (10.7-15.3); MCH 32.1 pg (25.7-33.7); MCHC 32.3 g/dl (32.0-36.0); MEAN CELL VOLUME 99.4 fl (80-96); MEAN PLT VOLUME 7.4 fl (7.5-11.1); PLATELET COUNT 289 K/MM3 (134-434); RBC 3.94 M/mm3 (3.60-5.2); RDW 17.6 % (11.6-15.6); WHITE BLOOD COUNT 4.1 K/mm3 (4.0-10.0)
[2018-08-06 07:58] LABS: ANION GAP 6 MMOL/L (8-16); BLOOD UREA NITROGEN 12 mg/dL (7-18); CALCIUM 8.8 mg/dL (8.5-10.1); CHLORIDE 104 mmol/L (98-107); CO2 31 mmol/L (21-32); CREATININE 0.8 mg/dL (0.55-1.3); GLUCOSE,RANDOM 81 mg/dL (74-106); MAGNESIUM 2.4 mg/dL (1.8-2.4); POTASSIUM 4.1 mmol/L (3.5-5.1); SODIUM 141 mmol/L (136-145)
--- NOTE | 2018-08-06 08:20 | CON.NEURO ---
Consult Consult Specialty:: hu Referred by:: neurology - History of Present Illness History of Present Illness: seizure history of the present illness this is a 52-year-old right-handed woman with history of Moderate mental retardation Epilepsy Resident to [facility] Patient was at her usual status of health until yesterday she had apparently 2 episodes of [facility]. Patient is on Keppra 1000 mg twice a day by mouth. In the emergency room patient was evaluated stepwise and she was be ready to be discharged when she had another seizure Ativan was given such seizures stopped. He called me I told him to give the patient a load of Keppra. Patient received 1000 Keppra. Patient was kept in the emergency room overnight under observation. Patient herselfis unable to give any history history was taken by the medical records and from the mental health case manager. 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: Other (downs syndrom, MR) ...LMP: 02/08/12 - Alcohol/Substance Use Hx Alcohol Use: No - Smoking History Smoking history: Never smoked Have you smoked in the past 12 months: No Aproximately how many cigarettes per day: 0 - Social History Usual Living Arrangement: Assisted Living ADL: Support Services History of Recent Travel: No Home Medications - Allergies Allergies/Adverse Reactions: Allergies Allergy/AdvReac Type Severity Reaction Status Date / Time No Known Allergies Allergy Verified 07/27/18 11:40 - Home Medications Home Medications: Ambulatory Orders Acetaminophen [Tylenol] 650 mg PO TID PRN 07/27/18 Levetiracetam 1,000 mg PO BID 07/27/18 Levothyroxine [Synthroid -] 150 mcg PO DAILY 07/27/18 Mineral Oil [Mineral Oil Heavy] 4 drop HS 07/27/18 Pedi Multivit 158/Iron/Vit K1 [Cerovite Jr Tablet Chew] 1 each PO DAILY Polyethylene Glycol 3350 [Miralax (For Bowel Prep) -] 17 gm PO DAILY 07/27/18 Sennosides/Docusate Sodium [Senna-S Tablet] 2 each PO DAILY 07/27/18 Family Disease History - Family Disease History Family History: Unable to Obtain Physical Exam-Neuro Vital Signs: Vital Signs Temperature 98.6 F 08/06/18 00:05 Pulse Rate 80 08/06/18 00:05 Respiratory Rate 18 08/06/18 00:05 Blood Pressure 110/78 08/06/18 00:05 O2 Sat by Pulse Oximetry (%) 96 08/06/18 00:05 Constitutional: Yes: Anxious Neck: Yes: WNL Labs: CBC, BMP 08/06/18 07:10 - Neuro Exam Level Of Consciousness: Yes: Alert Eyes: Yes: PERRLA Speech: Other Dominant Hand: Right Cranial Nerves II-XII Intact: Yes Gag: Present DTR's: 1+ Left Bicep, 1+ Right Bicep, 1+ Left Brachioradialis, 1+ Right Brachioradialis Motor Strength: 3/5: Left Arm, Right Arm Imaging - Results Cat Scan: Image Reviewed Problem List - Problems (1) Epilepsy Assessment/Plan: epilepsy in the case of mental retardation 1. Seizure precautions. 2. Increase Keppra to 1250 twice a day. 3. EEG now. 4. If the patient with no seizure activity and she returned to her baseline it is safe for her to go back to the [facility] on the higher dosage of the Keppra. I will follow up with her primary care regarding further treatment with the levels of the Keppra. Thank you very much for referring this patient for neurological consultation. Code(s): G40.909 - EPILEPSY, UNSP, NOT INTRACTABLE, WITHOUT STATUS EPILEPTICUS Qualifiers: Epilepsy type: unspecified Intractability: not intractable Status epilepticus: without status epilepticus Qualified Code(s): G40.909 - Epilepsy , unspecified, not intractable, without status epilepticus
[2018-08-06 08:23] LABS: INR 0.98 (0.83-1.09); PROTHROMBIN TIME (PATIENT) 11.1 SEC (9.7-13.0)
--- NOTE | 2018-08-06 09:56 | PN ---
Progress Note (short form) - Note Progress Note: PATIENT FROM [facility] COVERED BY SERVICE OR HOSPITALIST D/W DR JOYNER TO TRANSFER TO THEIR SERVICE.
[2018-08-06] MEDS ORDERED: levETIRAcetam 500 MG TABLET (FP) PO SCH ×2 (10:00→14:25)
[2018-08-06] MEDS ORDERED: ENOXAPARIN NA (PORCINE) 40 MG/0.4 ML DISP.SYRIN SQ SCH (10:00)
[2018-08-06] MEDS ORDERED: SENNOSIDES/DOCUSATE COMBO (SENNA PLUS) TABLET (UD) PO SCH (10:00)
[2018-08-06] MEDS ORDERED: POLYETHYLENE GLYCOL 3350 119 GM BTL PO SCH (10:00)
--- NOTE | 2018-08-06 11:28 | PN ---
Physical Exam: SUBJECTIVE: Patient seen and examined by me at bedside. Patient is nonverbal and currently sleeping but has been more drowsy in the last couple of hours. Aid at bedside and states that patient ate yogurt this morning and then a fell asleep. She reports that patient is usually more interactive but has been drowsy this morning but relates it to her not sleeping well overnight. OBJECTIVE: Vital Signs Period Temp Pulse Resp BP Sys/Miranda Pulse Ox Last 24 Hr 97.9 F-99.1 F 80-90 16-20 97-112/43-87 96-99 GENERAL: The patient is is drowsy but in no acute distress EYES: PERRL, sclera anicteric, conjunctiva clear. NECK: Cervical collar placed LUNGS: Breath sounds equal, clear to auscultation bilaterally, no wheezes, no crackles, no accessory muscle use. HEART: Regular rate and rhythm, S1, S2 without murmur, rub or gallop. ABDOMEN: Soft, nontender, nondistended, normoactive bowel sounds. EXTREMITIES: no edema. SKIN: Warm, dry, normal turgor, no rashes or lesions noted Laboratory Results - last 24 hr CBC, BMP 08/06/18 07:10 08/06/18 07:10 Active Medications Generic Name Dose Route Start Last Admin Trade Name Freq PRN Reason Stop Dose Admin Enoxaparin Sodium 40 mg 08/06/18 10:00 08/06/18 09:36 Lovenox - SQ 40 mg DAILY BRIELLE Administration Levetiracetam 1,000 mg 08/06/18 10:00 08/06/18 09:36 Keppra - PO 1,000 mg BID BRIELLE Administration Levothyroxine Sodium 150 mcg 08/06/18 07:00 08/06/18 09:08 Synthroid - PO 150 mcg DAILY@0700 BRIELLE Administration Lorazepam 1 mg 08/05/18 22:22 Ativan Injection - IVPUSH Q4H PRN MUSCLE SPASMS Polyethylene Glycol 17 gm 08/06/18 10:00 08/06/18 09:36 Miralax (For Daily Use) - PO 17 grams DAILY BRIELLE Administration Senna/Docusate Sodium 2 tablet 08/06/18 10:00 08/06/18 09:36 Pericolace - PO 2 tablet DAILY BRIELLE Administration ASSESSMENT/PLAN: Patient is a 52 year old female who was sent from [place] for increasing episodes of Seizures. Patient admitted for further monitoring and management. Epilepsy -Increase Keppra to 1250mg BID -Keppra levels pending -Prolactin pending -U/A only positive for Nitrite. No LE and urine WBC 5, patient afebrile and shows no source of infection. -EEG ordered and if wnl, patient may be discharged, as per Neurology -Ate this morning and tolerated PO -Seizure precautions and aspiration precautions High Anion Gap Metabolic Acidosis- Resolved -AG 6 today -Prolactin pending Hypoalbuminemia likely 2/2 malnourishment -patient on pureed diet at [facility] -Switchboard Troubleshooter consult -Suggest high protein supplement once patient eating again. Low TSH and High T4 -TSH 0.07 with T4 of 1.75 -Levothyroxine changed from 125mcg to 150 mcg in May 2018 -Will need to recheck as outpatient Constipation -Continue Senna and Miralax F/E/N -fluids not indicated -lytes WNL -NPO while in danger of seizing. Can feed in AM Prophylaxis -Lovenox 40mg Sq daily -No GI required Disposition -Full code -EEG pending Visit type - Emergency Visit Emergency Visit: Yes ED Registration Date: 08/05/18 Care time: The patient presented to the Emergency Department on the above date and was hospitalized for further evaluation of their emergent condition. - New Patient This patient is new to me today: Yes Date on this admission: 08/06/18 - Critical Care Critical Care patient: No
--- NOTE | 2018-08-06 13:37 | EKG ---
Test Reason : Blood Pressure : / mmHG Vent. Rate : 095 BPM Atrial Rate : 095 BPM P-R Int : 154 ms QRS Dur : 068 ms QT Int : 354 ms P-R-T Axes : 076 040 029 degrees QTc Int : 444 ms NORMAL SINUS RHYTHM NORMAL ECG WHEN COMPARED WITH ECG OF 13-JUN-2018 09:17, T WAVE AMPLITUDE HAS INCREASED IN ANTERIOR LEADS Confirmed by UMM SAENZ MD ([id number] on 08/06/2018 1:36:48 PM Referred By: Confirmed By:UMM SAENZ MD
[2018-08-06 13:41] VITALS: PULSE 72; TEMP 98.2
[2018-08-06 15:13] VITALS: BP 100/58; BMI 18.7
--- NOTE | 2018-08-06 16:19 | DS ---
Physical Exam: SUBJECTIVE: Patient seen and examined by me at bedside. Patient baseline nonverbal and unable to provide information. According to her aid at bedside, patient is slowly starting to go back to baseline. She tolerated breakfast and lunch today OBJECTIVE: Vital Signs Period Temp Pulse Resp BP Sys/Miranda Pulse Ox Last 24 Hr 98.2 F-99.1 F 69-82 16-18 97-112/43-87 96-100 PHYSICAL EXAM GENERAL: The patient is is drowsy but in no acute distress EYES: PERRL, sclera anicteric, conjunctiva clear. NECK: Cervical collar placed LUNGS: Breath sounds equal, clear to auscultation bilaterally, no wheezes, no crackles, no accessory muscle use. HEART: Regular rate and rhythm, S1, S2 without murmur, rub or gallop. ABDOMEN: Soft, nontender, nondistended, normoactive bowel sounds. EXTREMITIES: no edema. SKIN: Warm, dry, normal turgor, no rashes or lesions noted LABS Laboratory Results - last 24 hr Laboratory Tests 08/05/18 08/05/18 08/05/18 15:41 15:41 15:41 WBC 4.3 RBC 4.16 Hgb 13.5 Hct 40.8 MCV 98.1 H MCH 32.5 MCHC 33.1 RDW 17.6 H Plt Count 366 MPV 7.5 Absolute Neuts (auto) 2.8 Neutrophils % 65.7 Lymphocytes % 25.3 Monocytes % 7.2 Eosinophils % 0.7 Basophils % 1.1 Nucleated RBC % 0 PT with INR INR Sodium 140 Potassium 4.5 Chloride 99 Carbon Dioxide 17 L Anion Gap 24 H BUN 14 Creatinine 0.8 Creat Clearance w eGFR > 60 POC Glucometer Random Glucose 103 Calcium 10.0 Phosphorus 3.5 Magnesium 2.3 Total Bilirubin 0.4 AST 28 ALT 43 Alkaline Phosphatase 148 H Total Protein 7.9 Albumin 1.6 L TSH 0.07 L Free T4 Urine Color Urine Appearance Urine pH Ur Specific Diana Urine Protein Urine Glucose (UA) Urine Ketones Urine Blood Urine Nitrite Urine Bilirubin Urine Urobilinogen Ur Leukocyte Esterase Urine WBC (Auto) Urine RBC (Auto) Urine Bacteria Urine Mucus Urine Yeast 08/05/18 08/06/18 08/06/18 18:40 07:01 07:10 WBC 4.1 RBC 3.94 Hgb 12.6 Hct 39.2 MCV 99.4 H MCH 32.1 MCHC 32.3 RDW 17.6 H Plt Count 289 D MPV 7.4 L Absolute Neuts (auto) Neutrophils % Lymphocytes % Monocytes % Eosinophils % Basophils % Nucleated RBC % PT with INR INR Sodium Potassium Chloride Carbon Dioxide Anion Gap BUN Creatinine Creat Clearance w eGFR POC Glucometer 88.30433 Random Glucose Calcium Phosphorus Magnesium Total Bilirubin AST ALT Alkaline Phosphatase Total Protein Albumin TSH Free T4 Urine Color Yellow Urine Appearance Cloudy Urine pH 6.0 Ur Specific Diana 1.017 Urine Protein Negative Urine Glucose (UA) Negative Urine Ketones Negative Urine Blood Negative Urine Nitrite Positive Urine Bilirubin Negative Urine Urobilinogen Negative Ur Leukocyte Esterase Negative Urine WBC (Auto) 5 Urine RBC (Auto) 2 Urine Bacteria Rare Urine Mucus Rare Urine Yeast Few 08/06/18 08/06/18 07:10 07:10 WBC RBC Hgb Hct MCV MCH MCHC RDW Plt Count MPV Absolute Neuts (auto) Neutrophils % Lymphocytes % Monocytes % Eosinophils % Basophils % Nucleated RBC % PT with INR 11.10 INR 0.98 Sodium 141 Potassium 4.1 Chloride 104 Carbon Dioxide 31 Anion Gap 6 L BUN 12 Creatinine 0.8 Creat Clearance w eGFR > 60 POC Glucometer Random Glucose 81 Calcium 8.8 Phosphorus 4.0 Magnesium 2.4 Total Bilirubin AST ALT Alkaline Phosphatase Total Protein Albumin TSH Free T4 1.75 H Urine Color Urine Appearance Urine pH Ur Specific Diana Urine Protein Urine Glucose (UA) Urine Ketones Urine Blood Urine Nitrite Urine Bilirubin Urine Urobilinogen Ur Leukocyte Esterase Urine WBC (Auto) Urine RBC (Auto) Urine Bacteria Urine Mucus Urine Yeast IMAGES: EEG (08/06/18): 1.) Localized sharp wave activity was noted in the right temporal area suggestive of epilipti form disturbances. 2.) These findings are nonspecific and may be seen with diffuse encephalopathy of degenerative origin. PRE-HOSPITAL COURSE: Patient is a 52 year old female with a PMHx of down syndrome, MR, Epilepsy, nonverbal at baseline who presented from [facility] after having 2 witnessed seizures that was described as generalized tonic clonic seizures the first one at 11:30 yesterday and another one at 13:40 yesterday, each lasting 1 minutes and resolved spontaneously. Patient then experienced post ictal symptoms including drowsiness. According to the aid, patient has had an increase in frequency and intensity of seizures, which was concerning to them, prompting this hospital visit. In the ED patient was found to have a significantly elevated anion gap of 24 and bicarb of 17. Patient was given a loading dose keppra of 1500mg IVP and admitted for neurology consult. HOSPITAL COURSE: Patient was admitted and Neurology consult was placed. Patient's High anion gap metabolic acidosis was resolved and had no further seizures were witnessed in her prehospital and hospital course. Neurology evaluated patient and EEG was done, which revealed no current seizure activity. Neurologly then recommended her Keppra dose to be increased from 1000mg BID to 1250 BID with Keppra levels repeated in three days. Her TSH and T4 levels were abnormal and it was discovered that her Synthroid was recently changed. Recommendations for repeat TSH and T4 levels within 6 weeks. Patient approved to be transferred back to [facility] by Dr. Jeffries Date of Admission:08/05/18 Date of Discharge: 08/06/18 Minutes to complete discharge: 45 Discharge Summary Reason For Visit: EPILEPSY,SEIZURE Current Active Problems Seizure (Acute) Epilepsy (Chronic) Condition: Stable - Instructions Diet, Activity, Other Instructions: RECOMMENDATIONS: -You were admitted because you were found to have seizures at home and sent here for further evaluation. Neurology evaluated you and did an EEG to see if you had any further seizure activities. The EEG was negative and revealed no seizure activities. Throughout your hospital course there were no seizure activity witnessed. -You were also found to have abnormal thyroid function. You will need to repeat your TSH and T3, T4 within 6 weeks of the last time your synthroid dose was adjusted. -You were able to tolerate your food and recommend you maintain your puree diet -You will need to be on seizure precautions -You will need to recheck your Keppra levels in three days (08/09/18) -If you have any seizures, please return to the ED MEDICATION CHANGES: -Your Keppra dose was increased to 1250mg twice a day -You may resume the rest of your home medications FOLLOW UPs: -Please follow up with the Neurologist, Dr. Camargo, within two weeks. Referrals: Orlando Barnhart MD [Primary Care Provider] - Guillermina Camargo MD [Staff Physician] - [facility] - Home Medications Comprehensive Discharge Medication List: Ambulatory Orders Acetaminophen [Tylenol] 650 mg PO TID PRN 07/27/18 Levothyroxine [Synthroid -] 150 mcg PO DAILY 07/27/18 Mineral Oil [Mineral Oil Heavy] 4 drop HS 07/27/18 Pedi Multivit 158/Iron/Vit K1 [Cerovite Jr Tablet Chew] 1 each PO DAILY Polyethylene Glycol 3350 [Miralax 255 gm Btl -] 17 gm PO DAILY 07/27/18 Sennosides/Docusate Sodium [Senna-S Tablet] 2 each PO DAILY 07/27/18 Ammonium Lactate Cream [Lac-Hydrin 12% Cream -] 1 applic TP BID 08/06/18 levETIRAcetam [Keppra -] 1,250 mg PO BID tablet 08/06/18 This patient is new to me today: Yes Date on this admission: 08/06/18 Emergency Visit: Yes ED Registration Date: 08/05/18 Care time: The patient presented to the Emergency Department on the above date and was hospitalized for further evaluation of their emergent condition. Critical Care patient: No - Discharge Referral Referred to [facility] No
[2018-08-06] MEDS ORDERED: levETIRAcetam 250 MG TABLET (FP) PO ONE (16:32)
[2018-08-06] MEDS ORDERED: levETIRAcetam 500 MG TABLET (FP) PO ONE (16:33)
--- NOTE | 2018-08-06 16:36 | PN ---
Teaching Attending Note Name of Resident: Evy Henry ATTENDING PHYSICIAN STATEMENT I saw and evaluated the patient. I reviewed the resident's note and discussed the case with the resident. I agree with the resident's findings and plan as documented. SUBJECTIVE:resting comfortable OBJECTIVE: Last Vital Signs Temp Pulse Resp BP Pulse Ox 98.2 F 72 16 100/58 99 08/06/18 14:56 08/06/18 14:56 08/06/18 14:56 08/06/18 14:56 08/06/18 14:56 General NAD ASSESSMENT AND PLAN: 52 year old woman with PMH Down's syndrome, MR, Epilepsy, nonverbal, lymphocytic thyroiditis from [place] presented to the ER after 2 witnessed seizure episodes 1. Epilepsy- with 2 breakthrough seizures. was keppra loaded in the ER. and dose was increased to 1250mg BID. EEG done and read by Dr Camargo and no activity reported. as per neuro can return to [place] and have repeat keppra levels sent in 3 days and f/u in the office for further titration of medication. seizure precautions. 2. Low TSH- reported that LT4 dose was recently adjusted. would repeat TFT in 6 weeks from the last adjustment and continue to titrate as needed 3. Downs syndrome 4. MR 5. stable for return to [place] on adjusted medication. close f/u with neuro. Dr Ranjit Rangel accepted patient back to [place] [facility]
== END 2018-08-06 17:40 ==
LOC: JER 14:22 → JERBED 18:49 → INTOOBSV 18:49 → J6S 08-06 14:48
PROVIDERS: ADMIT Internal Medicine; ATTEND Internal Medicine
PROC: 3E013GC Introduction of Other Therapeutic Substance into Subcutaneous Tissue, Percutaneous Approach (ICD-10-PCS; principal; 2018-08-05)
DX: G40.909 Epilepsy, unspecified, not intractable, without status epilepticus (principal); E88.09 Other disorders of plasma-protein metabolism, not elsewhere classified; E87.2 Acidosis; K59.00 Constipation, unspecified; Q90.9 Down syndrome, unspecified; F79 Unspecified intellectual disabilities; R47.01 Aphasia; E06.3 Autoimmune thyroiditis; E03.9 Hypothyroidism, unspecified
CPT/HCPCS: 36415; 80048; 80053; 81003; 81015; 82962; 83735; 84100; 84439; 84443; 85025; 85027; 85610; 87086; 87186; 93005; 93010; 95816; 96372; 99284-25; G0378

== ENCOUNTER 2019-04-10 23:22 | Emergency (ER) | payer OTHER ==
[2019-04-10 23:33] VITALS: BP 105/64; PULSE 74; TEMP 97.6; BMI 19.1
--- NOTE | 2019-04-11 01:41 | PDOC ---
History of Present Illness - General Chief Complaint: Injury Stated Complaint: BRUSE ON LEFT LEG Time Seen by Provider: 04/10/19 23:49 Past History - Past Medical History Allergies/Adverse Reactions: Allergies Allergy/AdvReac Type Severity Reaction Status Date / Time No Known Allergies Allergy Verified 04/10/19 23:59 Home Medications: Ambulatory Orders Acetaminophen [Tylenol] 325 mg PO Q4HWA 04/10/19 Levothyroxine [Synthroid -] 100 mcg PO DAILY 04/10/19 Multivitamin [Multiple Vitamins] 1 each PO DAILY 04/10/19 Polyethylene Glycol 3350 [Miralax (For Daily Use) -] 17 gm PO DAILY 04/10/19 Sennosides [Senna] 8.6 mg PO DAILY 04/10/19 Anemia: No Asthma: No Cancer: No Cardiac Disorders: No CVA: No COPD: No CHF: No DVT: No Dementia: No Diabetes: No Dialysis: No GI Disorders: Yes (umbilical hernia) Disorders: No HTN: No Hypercholesterolemia: No Kidney Stones: No Liver Disease: No Psychiatric Problems: No Seizures: Yes (Generalized non-convulsive epilepsy) Thyroid Disease: Yes Lung CA: No - Surgical History Abdominal Surgery: No Appendectomy: No Cardiac Surgery: No Cholecystectomy: No Gastric Stapling: No GI Surgery: No Lung Surgery: No Neurologic Surgery: Yes (spinal fusion) Orthopedic Surgery: Yes (Hoyt Rods) - Immunization History Immunization Up to Date: Yes - Suicide/Smoking/Psychosocial Hx Smoking Status: No Smoking History: Never smoked Have you smoked in the past 12 months: No Number of Cigarettes Smoked Daily: 0 Information on smoking cessation initiated: No Hx Alcohol Use: No Drug/Substance Use Hx: No Substance Use Type: None Hx Substance Use Treatment: No *Physical Exam - Vital Signs Last Vital Signs Temp Pulse Resp BP Pulse Ox 97.6 F 74 18 105/64 100 04/10/19 23:30 04/10/19 23:30 04/10/19 23:30 04/10/19 23:30 04/10/19 23:30 ED Treatment Course - RADIOLOGY Radiology Studies Ordered: Category Date Time Status KNEE 2 POS-LEFT [RAD] Stat Radiology 04/11/19 00:13 Taken Medical Decision Making - Medical Decision Making 04/11/19 01:39 bruise to left knee, no tenderness No bruising, tenderness noted on body *DC/Admit/Observation/Transfer Diagnosis at time of Disposition: Bruise - Discharge Dispostion Disposition: HOME Condition at time of disposition: Stable Decision to Admit order: No - Referrals - Patient Instructions Printed Discharge Instructions: DI for Contusion Additional Instructions: Please follow up with your Primary Doctor within the next 48 hours. Return to the ER for new or concerning symptoms including but not limited to: excessive pain, spreading redness, inability to move the left knee, swelling in the left knee. Thank you - Post Discharge Activity
--- NOTE | 2019-04-11 01:51 | PDOC ---
Documentation entered by Ji Qiu SCRIBE, acting as scribe for Selena Power MD. Selena Power MD: This documentation has been prepared by the Lazarus tanner Nirvannie, SCRIBE, under my direction and personally reviewed by me in its entirety. I confirm that the documentation accurately reflects all work, treatment, procedures, and medical decision making performed by me. Attending Attestation - Resident Resident Name: Brendan Campos - ED Attending Attestation I have performed the following: I have examined & evaluated the patient, The case was reviewed & discussed with the resident, I agree w/resident's findings & plan, Exceptions are as noted - HPI HPI: 04/11/19 00:46 The patient is a 53 year old female, with a significant past medical history of down syndrome, MR, Epilepsy, nonverbal, lymphocytic thyroiditis, who presents to the emergency department via EMS from [facility] with, a bruise just above the left knee. As per aid at bedside, they were doing a body check today when they observed a bruise, prompting her arrival to the ED for evaluation. Aid denies any recent falls or trauma. Aid reports pt can usually indicate pain if she has any, but has not expressed pain. History is limited as pt is non verbal at baseline. Allergies: NKDA Social history: Resident at [employer]. Primary Care Physician: Dr. Barnhart - Physicial Exam PE: 04/11/19 00:46 GENERAL: Awake, alert, non verbal in NAD HEAD: No signs of trauma EYES: PERRLA, EOMI, sclera anicteric, conjunctiva clear ENT: Auricles normal inspection, hearing grossly normal, nares patent NECK: Normal ROM, supple, no lymphadenopathy, JVD, or masses LUNGS: Breath sounds equal, clear to auscultation bilaterally. No wheezes, and no crackles HEART: Regular rate and rhythm, normal S1 and S2, no murmurs, rubs or gallops ABDOMEN: Soft, nontender, normoactive bowel sounds. No guarding, no rebound. No masses EXTREMITIES: Normal range of motion, no edema. No clubbing or cyanosis. No cords , erythema, or tenderness. +3x3cm bruise to L lateral distal femur, non tender BACK: No midline spinal tenderness in cervical/thoracic/lumbar region NEUROLOGICAL: non verbal, moves all extremities spontaneously SKIN: noted above, otherwise warm, Dry, normal turgor, no rashes or lesions noted. - Medical Decision Making 04/11/19 01:48 53yo F presents to the ED with non tender bruise No known trauma No other evidence of trauma or bruising on full body exam XR negative on my read Pt at [facility] per staff member at bedside No emergent condition to treat at this time, pt clinically stable for DC home
== END 2019-04-11 01:48 | disposition home or self-care (01) ==
LOC: JER 23:22
DX: S80.02XA Contusion of left knee, initial encounter (principal); X58.XXXA Exposure to other specified factors, initial encounter; Y93.9 Activity, unspecified; Y92.098 Other place in other non-institutional residence as the place of occurrence of the external cause; Y99.8 Other external cause status; Q90.9 Down syndrome, unspecified; F79 Unspecified intellectual disabilities; R47.01 Aphasia; E06.3 Autoimmune thyroiditis
CPT/HCPCS: 73560-TC-LT-FY; 99282-25

== ENCOUNTER 2019-07-01 11:05 | Emergency (ER) | payer OTHER ==
[2019-07-01 11:14] VITALS: BP 91/48; PULSE 67; TEMP 98.3; BMI 17.3
--- NOTE | 2019-07-01 12:08 | PDOC ---
History of Present Illness - General Chief Complaint: Injury Stated Complaint: RT EYE INJURY Time Seen by Provider: 07/01/19 11:29 History Source: Other (jail staff/it security manager) - History of Present Illness Timing/Duration: other Past History - Past Medical History Allergies/Adverse Reactions: Allergies Allergy/AdvReac Type Severity Reaction Status Date / Time No Known Allergies Allergy Verified 07/01/19 11:08 Home Medications: Ambulatory Orders Acetaminophen [Tylenol] 325 mg PO Q4HWA 04/10/19 Levothyroxine [Synthroid -] 100 mcg PO DAILY 04/10/19 Multivitamin [Multiple Vitamins] 1 each PO DAILY 04/10/19 Polyethylene Glycol 3350 [Miralax (For Daily Use) -] 17 gm PO DAILY 04/10/19 Sennosides [Senna] 8.6 mg PO DAILY 04/10/19 Anemia: No Asthma: No Cancer: No Cardiac Disorders: No CVA: No COPD: No CHF: No DVT: No Dementia: No Diabetes: No Dialysis: No GI Disorders: Yes (umbilical hernia) Disorders: No HTN: No Hypercholesterolemia: No Kidney Stones: No Liver Disease: No Psychiatric Problems: No Seizures: Yes (Generalized non-convulsive epilepsy) Thyroid Disease: Yes Lung CA: No - Surgical History Abdominal Surgery: No Appendectomy: No Cardiac Surgery: No Cholecystectomy: No Gastric Stapling: No GI Surgery: No Lung Surgery: No Neurologic Surgery: Yes (spinal fusion) Orthopedic Surgery: Yes (Hoyt Rods) - Immunization History Immunization Up to Date: Yes - Suicide/Smoking/Psychosocial Hx Smoking Status: No Smoking History: Never smoked Have you smoked in the past 12 months: No Number of Cigarettes Smoked Daily: 0 Hx Alcohol Use: No Drug/Substance Use Hx: No Substance Use Type: None Hx Substance Use Treatment: No Review of Systems - Review of Systems Able to Perform ROS?: No (h/o cerebral palsy) Constitutional: No: Fever ABD/GI: No: Vomiting *Physical Exam - Vital Signs Last Vital Signs Temp Pulse Resp BP Pulse Ox 98.3 F 67 18 91/48 L 100 07/01/19 11:10 07/01/19 11:10 07/01/19 11:10 07/01/19 11:10 07/01/19 11:10 - Physical Exam General Appearance: Yes: Appropriately Dressed. No: Apparent Distress HEENT: positive: Other (minimal eccymosis to R periorbital area, no swelling, crepitus, step offs, no grimace w/ palpation, conjunc clear w/ EOMI) Neck: positive: Supple Respiratory/Chest: negative: Respiratory Distress Neurologic: positive: Alert Medical Decision Making - Medical Decision Making 07/01/19 12:01 53 yo F, resident at [facility] w/ h/o CP, non-verbal, mostly W/C bound , seizures, brought in by jail staff for R eye injury. Per staff patient noticed to have bruising to her R eye after awakening yesterday morning. Per history, patient sometimes sleep with her "fists clenched into her eye". No h/ o self injurious behaviour. No recent trauma. Patient on meds for seizures and continues to have breakthrough seizures, last one being several days ago which was witnessed by staff w/ no injury. F/u with neuro. Per jail staff patient has been baseline with no vomiting. Pt alert and in NAD w/ w/ exam only remarkable for minimal R periorbital ecchymosis. No e/o serious injury. No indication to scan at this taylor. Spoke to Sonu, it security manager at facility, who also gave hx. Is aware of dispo. Of note, BP low, pt's baseline as per staff *DC/Admit/Observation/Transfer Diagnosis at time of Disposition: Periorbital ecchymosis of right eye Qualifiers: Encounter type: initial encounter Qualified Code(s): S00.11XA - Contusion of right eyelid and periocular area, initial encounter - Discharge Dispostion Disposition: HOME Condition at time of disposition: Good - Referrals Referrals: Pa Barnhart Jr [Primary Care Provider] - - Patient Instructions Printed Discharge Instructions: Contusion Additional Instructions: Patient appears to have some R eye bruising. Based on exam, there was no evidence of serious eye injury at this time and no need for CAT scan. Bruising should heal in time. Please return for worsening of symptoms - Post Discharge Activity
== END 2019-07-01 12:10 | disposition home or self-care (01) ==
LOC: JERFT 11:05
DX: S00.11XA Contusion of right eyelid and periocular area, initial encounter (principal); X58.XXXA Exposure to other specified factors, initial encounter; Y93.89 Activity, other specified; Y92.092 Bedroom in other non-institutional residence as the place of occurrence of the external cause; E07.9 Disorder of thyroid, unspecified; G80.9 Cerebral palsy, unspecified
CPT/HCPCS: 99281-25